=== PATIENT | female | born 1960 | race Caucasian/White ===

== ENCOUNTER 2019-02-16 01:48 | Inpatient (IN) | payer OTHER ==
[~2019-02-16] VITALS: Ht 154.9 cm; Wt 73.0 kg
[~2019-02-16 01:48] MED LIST: VIC PO
[2019-02-16 01:50] VITALS: BP 158/92
--- NOTE | 2019-02-16 01:51 | NUR ---
PT LADI GARDNER. TAKEN TO BED 12
[2019-02-16] MEDS ORDERED: SYN.05 PO (01:56)
[2019-02-16] MEDS ORDERED: VITD1000 PO (01:56)
[2019-02-16] MEDS ORDERED: ALPR0.5T2 PO (01:56)
[2019-02-16] MEDS ORDERED: NACL 0.9% 1,000 ML IV ONE (01:58)
[2019-02-16] MEDS ORDERED: ONDANSETRON 4 MG/2 ML VIAL IVP ONE (02:00)
[2019-02-16] MEDS ORDERED: DICYCLOMINE 20 MG/2 ML VIAL IM ONE (02:00)
--- NOTE | 2019-02-16 02:00 | NUR ---
59 Y/O F BIBA WITH C/O ABDOMINAL PAIN X6 HOURS. 10/10 PAIN, SHARP AND CONTINOUS. PER PT, "AFTER I ATE DINNER I WAS FINE, THEN SUDDENLY MY STOMACH HURTED BAD." +N/V. 5-6 EPISODES OF VOMITTING PRIOR TO ARRIVAL. ABDOMEN TENDER TO TOUCH. PT GRIMACES WHEN TOUCH. FAMILY AT BEDSIDE. ERMD NOTIFIED. WILL CONTINUE TO MONITOR.
[2019-02-16 02:10] LABS: BASOPHILS % (AUTO) 0.2 % (0.0-2.0); EOSINOPHILS % (AUTO) 0.1 % (0.0-4.0); HEMATOCRIT 41.7 % (36-48); MEAN CORPUSCULAR HEMOGLOBIN 31 pg (27-31); MEAN CORPUSCULAR HGB CONC 34 g/dL (33-37); MEAN CORPUSCULAR VOLUME 91.8 fL (80-94); MONOCYTES # (AUTO) 0.3 K/uL (0.8-1.0); MONOCYTES % (AUTO) 2.4 % (1.7-9.3); NEUTROPHILS # (AUTO) 10.9 K/uL (1.8-7.7); PLATELET COUNT (AUTO) 291 K/uL (140-450); RED BLOOD CELL COUNT(AUTO) 4.54 MIL/uL (4.20-5.40); RED CELL DISTRIBUTION WIDTH 13.3 % (11.6-13.7); WHITE BLOOD COUNT (AUTO) 12.3 K/uL (4.8-10.8)
[2019-02-16 02:18] LABS: ANION GAP 15.6 (8-16); CARBON DIOXIDE 25.2 mmol/L (21-32); CREATININE 0.6 mg/dL (0.6-1.3); POTASSIUM 3.8 mmol/L (3.5-5.1)
[2019-02-16 02:26] LABS: ALBUMIN 4.4 g/dL (3.4-5.0); TOTAL BILIRUBIN 0.4 mg/dL (0.0-1.0)
[2019-02-16 02:33] LABS: LYMPHOCYTES % (AUTO) 8.3 % (20.5-51.1)
[2019-02-16] MEDS ORDERED: MORPHINE SULFATE 4 MG/ML SYR IVP ONE ×2 (03:15→05:35)
--- NOTE | 2019-02-16 03:15 | NUR ---
PT STILL HAVING 10/[address] ALFARO MADE AWARE.
[2019-02-16 03:42] LABS: APPEARANCE,URINE CLEAR (CLEAR); BILIRUBIN,URINE NEGATIVE (NEGATIVE); BLOOD, URINE 1+ (NEGATIVE); COLOR,URINE YELLOW (YELLOW); LEUKOCYTE ESTERASE ,URINE TRACE (NEGATIVE); NITRITE, URINE NEGATIVE (NEGATIVE); UGLUCOSE NEGATIVE (NEGATIVE)
--- NOTE | 2019-02-16 03:45 | NUR ---
PT TAKEN TO CT VIA W/C.
[2019-02-16 03:52] LABS: WBC,URINE 0-5 /HPF (0-5)
--- NOTE | 2019-02-16 04:00 | NUR ---
PT RETURNED FROM CT.
--- NOTE | 2019-02-16 04:15 | NUR ---
PT PAIN REEVALUATED. PAIN LEVEL DECREASED TO 0/10.
--- NOTE | 2019-02-16 05:15 | NUR ---
#14 FR NG tube placed to left nare. Placement checked by auscultation of instilled air into stomach and aspiration of gastric contents. Tubing taped in place to prevent dislodging. Patient tolerated procedure well.
[2019-02-16] MEDS ORDERED: MORPHINE SULFATE 4 MG/ML SYR ONE (05:34)
--- NOTE | 2019-02-16 05:52 | NUR ---
Patient will be admitted to care of Dr. Pierre. Admited to [facility]. Will go to room 119A. Belongings list completed. VSS at time of transport. Report given to CHARI Peguero. Transfer of care at this time.
--- NOTE | 2019-02-16 05:52 | NUR ---
RECEIVED BEDSIDE REPORT FROM ER NURSE CHERELLE. PT A/O X4. ABLE TO MAKE NEEDS KNOWN. VERBALIZES UNDERSTANDING. ABLE TO AMBULATE. STEADY GAIT. ROOM AIR. NO SIGNS OF RESP DISTRESS. NG TUBE IN RIGHT NARE ALREADY IN PLACE. L AC 20G. INTACT AND PATENT. SKIN IS INTACT. VITALS ARE WITHIN NORMAL LIMITS. BED IN LOW POSITION. CALL LIGHT WITHIN REACH. WILL CONTINUE TO MONITOR.
--- NOTE | 2019-02-16 07:36 | NUR ---
ENDORSED PT TO DAYSHIFT RN. PT IN STABLE CONDITION.
--- NOTE | 2019-02-16 07:37 | NUR ---
RECEIVED BEDSIDE REPORT FROM COMPUTER FORENSIC EXAMINER NURSE. PATIENT IS AWAKE, ALERT AND ORIENTEDX4. NO SIGNS OF DISTRESS ON RA. DX SBO, NG TUBE IN PLACE. SWOOSH HEARD. SUCTION ON INTERMITTENT. PATIENT IS AMBULATORY. IV ON L AC 20G, SL. CLEAN, DRY AND INTACT. SKIN IS INTACT. CONTINENT. PATIENT ABLE TO MAKE NEEDS KNOWN. WILL CONTINUE TO MONITOR THE PATIENT. BED IN LOW POSITION. CALL LIGHT WITHIN REACH
[2019-02-16] MEDS ORDERED: BISACODYL 10 MG SUPP RC PRN (07:40)
[2019-02-16] MEDS ORDERED: ONDANSETRON 4 MG/2 ML VIAL IVP PRN (07:40)
[2019-02-16] MEDS ORDERED: ALUMINUM HYD/MAG/SIMETHICONE 30 ML UDC PO PRN (07:40)
[2019-02-16] MEDS ORDERED: SODIUM PHOSPHATE 118 ML ENEM RC PRN (07:40)
[2019-02-16] MEDS ORDERED: ACETAMINOPHEN 325 MG TAB PO PRN (07:40)
[2019-02-16] MEDS ORDERED: IPRATROPIUM 0.02% 0.5 MG/2.5 ML NEBU INH PRN (07:40)
[2019-02-16] MEDS ORDERED: guaiFENesin DM 200/20 MG-10 ML 10 ML UDC PO PRN (07:40)
[2019-02-16] MEDS ORDERED: POTASSIUM CHLORIDE 40 MEQ, LIDOCAINE 1% 25 MG in NACL 0.9% 250 ML IV PRN (07:40)
[2019-02-16] MEDS ORDERED: MAGNESIUM OXIDE 400 MG TAB PO PRN (07:40)
[2019-02-16] MEDS ORDERED: ACETAMINOPHEN 650 MG SUPP RC PRN (07:40)
[2019-02-16] MEDS ORDERED: LORazepam 2 MG/ML VIAL IVP PRN (07:40)
[2019-02-16] MEDS ORDERED: ZOLPIDEM 5 MG TAB PO PRN (07:40)
[2019-02-16] MEDS ORDERED: ALBUTEROL 0.083% 2.5 MG/3 ML NEBU INH PRN (07:40)
[2019-02-16] MEDS ORDERED: POTASSIUM CHLORIDE 10 MEQ TABER PO PRN (07:40)
[2019-02-16] MEDS ORDERED: cloNIDine 0.1 MG TAB PO PRN (07:40)
[2019-02-16] MEDS ORDERED: HYDROcodone/APAP 5/325 MG 1 TAB TAB PO PRN ×2 (07:40)
[2019-02-16] MEDS ORDERED: diphenhydrAMINE 50 MG/ML VIAL IVP PRN (07:40)
[2019-02-16] MEDS ORDERED: DOCUSATE SODIUM 250 MG GELCAP PO PRN (07:40)
[2019-02-16] MEDS ORDERED: MAG SULF 2000 MG/WATER PREMIX 50 ML IV PRN (07:40)
[2019-02-16 08:00] VITALS: BP 130/60
--- NOTE | 2019-02-16 08:12 | NUR ---
GAVE PRN PAIN MED MORPHINE. DOCUMENTED ON DOWN TIME FORM. ADMINISTERED AT 0812. EDUCATED ON SIDE EFFECTS. PATIENT TOLERATED WELL. WILL CONTINUE TO MONITOR THE PATIENT.
[2019-02-16] MEDS: DEXT 5% /NACL 0.9% 1,000 ML IV SCH ×3 (09:08→21:51)
--- NOTE | 2019-02-16 09:10 | NUR ---
ADMINISTERED IVF. PATIENT TOLERATING WELL. WILL CONTINUE TO MONITOR THE PATIENT
--- NOTE | 2019-02-16 10:13 | NUR ---
PATIENT WANTED PRN PAIN MED BEFORE SMALL BOWEL FOLLOW THROUGH. SHE SAID SHES IN PAIN. EDUCATED ON SIDE EFFECTS. PATIENT TOLERATED WELL. WILL CONTINUE TO MONITOR THE PATIENT
--- NOTE | 2019-02-16 12:39 | NUR ---
PATIENT AMBULATED TO THE RESTROOM W ASSISTANCE. AND BACK IN BED. NO SIGNS OF DISTRESS. WILL CONTINUE TO MONITOR THE PATIENT
--- NOTE | 2019-02-16 13:35 | NUR ---
PATIENT JUST GOT ANOTHER IMAGE DONE FOR THE SMALL BOWEL FOLLOW THROUGH, SHE IS SLEEPING AT THIS TIME. NO SIGNS OF DISTRESS. WILL CONTINUE TO MONITOR THE PATIENT.
[2019-02-16] MEDS: MORPHINE SULFATE 2 MG/ML SYR IVP PRN ×2 (14:19→20:13)
--- NOTE | 2019-02-16 14:20 | NUR ---
ADMINISTERED PRN PAIN MED. PATIENT TOLERATED WELL. EDUCATED ON SIDE EFFECTS. WILL CONTINUE TO MONITOR THE PATIENT
[2019-02-16 16:00] VITALS: BP 106/50
--- NOTE | 2019-02-16 16:50 | NUR ---
PATIENT W HER AT THIS TIME. NO COMPLAINTS AT THIS TIME. BED IN LOW POSITION. CALL LIGHT WITHIN REACH. WILL CONTINUE TO MONITOR THE PATIENT
--- NOTE | 2019-02-16 17:49 | NUR ---
DR SHEEHAN STUDENT REMOVED NGT. CALLED [facility] TO ORDER CLEAR LIQ DIET AND LEFT A MESSAGE
--- NOTE | 2019-02-16 19:11 | NUR ---
GAVE BEDSIDE REPORT TO SECURITY OFFICERS AND GUARDS NURSE. PATIENT ENDORSED IN STABLE CONDITION
--- NOTE | 2019-02-16 19:12 | NUR ---
RECD. RESTING IN BED, AWAKE, A/OX4. RESPIRATION EVEN AND UNLABORED. IV OF D5NS AT 80 ML/HR INFUSING, LEFT AC G20. LUNGS CLEAR ON BILATERAL AUSCULTATION. ABDOMEN SOFT WITH POSITIVE SOUNDS ON ALL QUADRANTS. STATED SHE IS PASSING GAS. ENCOURAGED TO AMBULATE MORE. PLAN OF CARE FOR THE SHIFT DISCUSSED. VERBALIZED UNDERSTANDING. DENIES PAIN 0/10.
--- NOTE | 2019-02-16 21:36 | NUR ---
Patient's Plan of Care was discussed and reviewed with NANCY: GIBRAN
--- NOTE | 2019-02-17 | NUR ---
SLEEPING COMFORTABLY IN BED.
[2019-02-17 01:26] VITALS: BP 115/60
--- NOTE | 2019-02-17 02:00 | NUR ---
STATED SHE HAD SOFT BM ALREADY.
--- NOTE | 2019-02-17 04:00 | NUR ---
SLEEPLING COMFORTABLY IN BED.
[2019-02-17 04:47] VITALS: BP 118/60
[2019-02-17] MEDS: MORPHINE SULFATE 2 MG/ML SYR IVP PRN ×2 (04:49→09:53)
--- NOTE | 2019-02-17 07:00 | NUR ---
CONDITION REMAIN STABLE. COMPLAINT OF ABDOMINAL PAIN ATTENDED PROMPTLY, MEDICATED ORDERED.
--- NOTE | 2019-02-17 07:20 | NUR ---
ENDORSED TO AM SHIFT NURSE FOR CONTINUITY OF CARE.
--- NOTE | 2019-02-17 07:21 | NUR ---
RECEIVED BEDSIDE REPORT FROM PREPARATION SUPERVISOR NURSE.PATIENT IS AWAKE, ALERT AND ORIENTEDX4. NO SIGNS OF DISTRESS ON RA. SKIN IS INTACT. PATIENT IS AMBULATORY. CONTINENT. IV ON L AC 20G INFUSING D5NS AT 80. CLEAN, DRY AND INTACT. PATIENT ABLE TO MAKE NEEDS KNOWN. NO COMPLAINTS AT THIS TIME. WILL CONTINUE TO MONITOR THE PATIENT.
[2019-02-17 07:34] LABS: BASOPHILS % (AUTO) 0.6 % (0.0-2.0); EOSINOPHILS # (AUTO) 0.2 K/uL (0-0.4); EOSINOPHILS % (AUTO) 2.8 % (0.0-4.0); HEMATOCRIT 34.7 % (36-48); HEMOGLOBIN 11.7 g/dL (12.0-16.0); LYMPHOCYTES # (AUTO) 1.8 K/uL (2.5-16.5); LYMPHOCYTES % (AUTO) 29.2 % (20.5-51.1); MEAN CORPUSCULAR HEMOGLOBIN 31 pg (27-31); MEAN CORPUSCULAR HGB CONC 34 g/dL (33-37); MEAN CORPUSCULAR VOLUME 92.5 fL (80-94); MONOCYTES # (AUTO) 0.4 K/uL (0.8-1.0); MONOCYTES % (AUTO) 6.8 % (1.7-9.3); NEUTROPHILS # (AUTO) 3.7 K/uL (1.8-7.7); NEUTROPHILS % (AUTO) 60.6 % (42.2-75.2); PLATELET COUNT (AUTO) 233 K/uL (140-450); RED BLOOD CELL COUNT(AUTO) 3.75 MIL/uL (4.20-5.40); RED CELL DISTRIBUTION WIDTH 13.7 % (11.6-13.7)
[2019-02-17] MEDS: DEXT 5% /NACL 0.9% 1,000 ML IV SCH (09:53)
--- NOTE | 2019-02-17 09:53 | NUR ---
IV INFILTRATED, REMOVED IV, TIP INTACT. NEW IV ON R FA 22G INFUSING D5NS AT 80. CLEAN, DRY AND INTACT.ADMINISTERED PRN PAIN MED. EDUCATED ON SIDE EFFECTS. WILL CONTINUE TO MONITOR THE PATIENT
--- NOTE | 2019-02-17 11:00 | NUR ---
PATIENT RESTING IN BED. NO SIGNS OF DISTRESS. WILL CONTINUE TO MONITOR THE PATIENT
--- NOTE | 2019-02-17 12:01 | NUR ---
PATIENT IS AWARE OF DISCHARGE ORDER. WILL SEE IF SHE TOLERATES HER FOOD AND SHE CAN BE DISCHARGED.
--- NOTE | 2019-02-17 13:19 | NUR ---
PATIENT TOLERATED FOOD WELL. WILL START DISCHARGE NOW.
--- NOTE | 2019-02-17 13:50 | NUR ---
I MET PATIENT AT BEDSIDE GETTING READY TO GO HOME, EXPLAINED TO PATIENT THAT I WILL OBTAIN AND VERIFY INFORMATION WITH HER AND SHE AGREED. PATIENT LIVES AT HOME WITH SPOUSE AND WILL GO BACK THERE UPON DISCHARGE.PATIENT IS INDEPENDENT WITH ADLS, AND SHE DOES NOT NEED HELP WITH HER MEDICINES PATIENT GOES TO [facility] [place] [facility] AND NO PROBLEM PICKING UP MEDICATIONS.PATIENT IS DRIVING .PATIENT IS SEEING DR ARAUJO PCP AND SHE GOES VISIT HIM IN TWO TIMES A YEAR. APPOINTMENT MADE TO SEE DR ARAUJO ON 02/23/19 ANAD APPOINTMENT SCHEDULE PROVIDED TO PATIENT. INSTRUCTED PATIENT TO BRING ALL DISCHARGE PAPERS UPON FOLLOW-UP VISIT, PATIENT VERBALIZED UNDERSTANDING. PATIENT IS NOT USING ANY DME AT HOME. PATIENT IS NOT USING ANY HOME HEALTH SERVICES PRIOR TO HOSPITALIZATION. PATIENT DOES NOT HAVE ANY ADVANCE DIRECTIVES AND NOT INTERESTED AT THIS TIME. PATIENT HAS NO CONCERN AND QUESTIONS AT THIS TIME. PATIENT VERBALIZED THAT SHE IS HAPPY OF THE CARE HERE IN THE HOSPITAL.
--- NOTE | 2019-02-17 13:55 | NUR ---
CALLED OFFICE OF DR ARAUJO [phone], SPOKE WITH PAUL, FOLLOW-UP APPOINTMENT MADE ON 02/23/19 AT 10AM , [address] [place] [address]. COPY OF APPOINTMENT GIVEN TO PATIENT, VERBALIZED UNDERSTANDING, RN JT NOTIFIED.
--- NOTE | 2019-02-17 13:58 | NUR ---
educated on disease process, abd s/sx, when to go to the er, educated on continued home meds, educated on follow up w pcp, educated on refusal of pna vaccine. flu not in season. gave excuse note to patient till 02/21/19, per dr wallace mora. patient signed all paperwork and verbalized understanding. is here to pharmacy picking tech patient. iv out, tip intact. id bands removed. patient just changing and going to leave
--- NOTE | 2019-02-17 14:00 | NUR ---
PATIENT LEFT IN STABLE CONDITION WITH
== END 2019-02-17 14:00 | disposition home or self-care (01) | DRG 247 ==
LOC: MED 01:48 → MTU 05:12
PROVIDERS: ADMIT Internal Medicine Pulmonary Disease; ATTEND Internal Medicine Pulmonary Disease
PROC: 0D9670Z Drainage of Stomach with Drainage Device, Via Natural or Artificial Opening (ICD-10-PCS; principal; 2019-02-16)
DX: K56.600 Partial intestinal obstruction, unspecified as to cause (principal); E03.9 Hypothyroidism, unspecified; Z79.899 Other long term (current) drug therapy; Z90.710 Acquired absence of both cervix and uterus; Z90.722 Acquired absence of ovaries, bilateral
CPT/HCPCS: 36415; 71045; 74018; 74250; 80053; 81001; 83690; 85025; 87081; 87086; 94640; 96361; 96372; 96374; 96375; 96376; 99291; J0500; J2270; J2405; J7042; Q0092